=== PATIENT | female | born 1995 | race Caucasian/White ===

== ENCOUNTER 2019-03-31 11:42 | Emergency (ER) | payer BC ==
--- NOTE | 2019-03-31 12:02 | UC ---
Throat Pain/Nasal Hever HPI - HPI Summary HPI Summary: 23 yo female presents with sore tongue. She tells me that she has a history of bad asthma and uses a steroid inhaler and albuterol inhaler for this. Recently her asthma has been "Acting up" due to the weather change and she has been using these more frequently. Asthma is improving, but over the last 3 days has noticed a sore tongue and foods taste different. She has also been using her new roommates e-cig at school and found out that said roommate has oral sores that pt is concerned she contracted - has one small blister on her tongue that is tender. Denies fever, chills, sore throat, sinus symptoms, sob, rash. - History of Current Complaint Stated Complaint: ST, SPOTS Time Seen by Provider: 03/31/19 12:02 Hx Obtained From: Patient Onset/Duration: Sudden Onset Severity: Moderate Pain Intensity: 5 Pain Scale Used: 0-10 Numeric - Allergies/Home Medications Allergies/Adverse Reactions: Allergies Allergy/AdvReac Type Severity Reaction Status Date / Time Sulfa (Sulfonamide Allergy Swelling Verified 03/31/19 12:02 Antibiotics) Of Face,Lips,& Throat Home Medications: Home Medications Dextroamphetamine/Amphetamine [Adderall 20 mg Tablet] 1 tab QAM 03/31/19 [ History Confirmed 03/31/19] Fluticasone/Vilanterol MDI(NF) [Breo Ellipta MDI 200/25(NF)] 1 puff DAILY PRN [History Confirmed 03/31/19] Montelukast Sodium TAB* [Singulair 10 MG TAB*] 1 tab DAILY 03/31/19 [History Confirmed 03/31/19] PMH/Surg Hx/FS Hx/Imm Hx - Additional Past Medical History Additional PMH: ADHD Asthma - Surgical History Surgical History: None - Family History Known Family History: Positive: Respiratory Disease - Social History Occupation: Student Lives: Dormitory/Roommates Alcohol Use: Occasionally Substance Use Type: None Smoking Status (MU): Never Smoked Tobacco Review of Systems All Other Systems Reviewed And Are Negative: No Constitutional: Positive: Negative Skin: Positive: Negative Eyes: Positive: Negative ENT: Positive: Other - tongue lesion and sore tongue Respiratory: Positive: Negative Cardiovascular: Positive: Negative Gastrointestinal: Positive: Negative Neurological: Positive: Negative Psychological: Positive: Negative Physical Exam - Summary Physical Exam Summary: GENERAL: NAD. WDWN. No pain distress. SKIN: No rashes, sores, lesions, or open wounds. HEENT: Head: AT/NC Eyes: EOM intact. Conjunctiva clear without inflammation or discharge. Ears: Hearing grossly normal. TMs intact, no bulging, erythema, or edema. Nose: Nasal mucosa pink and moist. NTTP maxillary and frontal sinus. Throat: Posterior oropharynx without exudates, erythema, or tonsillar enlargement. Uvula midline. Tongue with mild white coating worse at the posterior aspect. Right side of tongue with 1mm diameter farmer/white appearing blister that is slightly TTP. No ulcer or erythematous base. No drainage or bleeding. NECK: Supple. Nontender. No lymphadenopathy. CHEST: CTAB. No accessory muscle use. Breathing comfortably and in no distress. CV: RRR. Pulses intact. Cap refill <2seconds NEURO: Alert. PSYCH: Age appropriate behavior. Triage Information Reviewed: Yes Vital Signs: Vital Signs: Temp Pulse Resp BP Pulse Ox 97.9 F 80 16 136/75 100 03/31/19 12:04 03/31/19 12:04 03/31/19 12:04 03/31/19 12:04 03/31/19 12:04 Vital Signs Reviewed: Yes Throat Pain/Nasal Course/Dx - Course Course Of Treatment: Suspect thrush. A culture was obtained of the lesion on her tongue, but this does not appear consistent with herpes. - Differential Dx/Diagnosis Provider Diagnosis: Thrush Discharge ED - Sign-Out/Discharge Documenting (check all that apply): Patient Departure All imaging exams completed and their final reports reviewed: No Studies - Discharge Plan Condition: Stable Disposition: HOME Prescriptions: Nystatin SUSPENSION ORAL SYR* 500,000 units PO QID 7 Days #140 ml Patient Education Materials: Oral Candidiasis (ED) Forms: *School Release Referrals: No Primary Care Phys,NOPCP [Primary Care Provider] - Additional Instructions: If you develop a fever, shortness of breath, chest pain, new or worsening symptoms - please call your PCP or go to the ED immediately. The spots on your tongue do not seem consistent with herpes, but we have sent a sample of the area to the lab for herpes testing - Billing Disposition and Condition Condition: STABLE Disposition: Home
[2019-03-31 12:10] VITALS: BP 136/75
[2019-04-02 18:03] LABS: Herpes Source TONGUE
== END 2019-03-31 12:29 | disposition home or self-care (01) ==
LOC: UCCORT 11:42
DX: B37.0 Candidal stomatitis (principal); J45.909 Unspecified asthma, uncomplicated; F90.9 Attention-deficit hyperactivity disorder, unspecified type; Z88.2 Allergy status to sulfonamides
CPT/HCPCS: 87529; 87651; 99202; G0463

== ENCOUNTER 2019-06-02 13:03 | Emergency (ER) | payer BC ==
[2019-06-02 13:29] VITALS: BP 121/84
--- NOTE | 2019-06-02 13:42 | UC ---
Skin Complaint HPI - HPI Summary HPI Summary: Pt presents c/o "crusted sore" X 3 weeks. Pt is concerned that she may have been exposed to oral herpes by roommate - History of Current Complaint Chief Complaint: UCSkin Time Seen by Provider: 06/02/19 13:21 Stated Complaint: SKIN CONCERN Hx Obtained From: Patient Hx Last Menstrual Period: 05/12/19 ?: No Onset/Duration: Gradual Onset, Lasting Weeks, Still Present Skin Exposure Onset/Duration: Days Ago Timing: Constant Onset Severity: Mild Current Severity: Mild Pain Intensity: 0 Location: Discrete - left corner of mouth Character: Raised Aggravating Factor(s): Nothing Alleviating Factor(s): Nothing Associated Signs & Symptoms: Positive: Rash - Allergy/Home Medications Allergies/Adverse Reactions: Allergies Allergy/AdvReac Type Severity Reaction Status Date / Time Penicillins Allergy Hives Verified 06/02/19 13:30 Sulfa (Sulfonamide Allergy Swelling Verified 06/02/19 13:29 Antibiotics) Of Face,Lips,& Throat PMH/Surg Hx/FS Hx/Imm Hx Previously Healthy: Yes - Surgical History Surgical History: None Surgery Procedure, Year, and Place: Tonsils - Family History Known Family History: Positive: Respiratory Disease - Social History Occupation: Student - [employer] Lives: Dormitory/Roommates Alcohol Use: Occasionally Substance Use Type: None Smoking Status (MU): Current Some Day Smoker Type: eCigarettes - Immunization History Vaccination Up to Date: Yes Review of Systems All Other Systems Reviewed And Are Negative: Yes Constitutional: Positive: Negative Skin: Positive: Rash - left corner of mouth Eyes: Positive: Negative ENT: Positive: Negative Respiratory: Positive: Negative Cardiovascular: Positive: Negative Gastrointestinal: Positive: Negative Genitourinary: Positive: Negative Motor: Positive: Negative Neurovascular: Positive: Negative Musculoskeletal: Positive: Negative Neurological: Positive: Negative Psychological: Positive: Negative Is Patient Immunocompromised?: No Physical Exam Triage Information Reviewed: Yes Appearance: Well-Appearing Vital Signs: Initial Vital Signs Temp 97.9 F 06/02/19 13:23 Pulse 81 06/02/19 13:23 Resp 16 06/02/19 13:23 BP 121/84 06/02/19 13:23 Pulse Ox 100 06/02/19 13:23 Vital Signs Reviewed: Yes Eye Exam: Normal ENT Exam: Normal Dental Exam: Normal Neck exam: Normal Respiratory Exam: Normal Respiratory: Positive: No respiratory distress Musculoskeletal Exam: Normal Neurological Exam: Normal Psychological Exam: Normal Skin Exam: Other - yellow crusted skin left corner of mouth that is yellow/ barboza, and skin between upper and lower lip in corner of mouth appears" split" . Course/Dx - Course Course Of Treatment: Pt denies pain. - Differential Diagnoses - Skin Complaint Differential Diagnoses: Tinea - Diagnoses Provider Diagnosis: Angular cheilitis Discharge ED - Sign-Out/Discharge Documenting (check all that apply): Patient Departure All imaging exams completed and their final reports reviewed: No Studies - Discharge Plan Condition: Stable Disposition: HOME Prescriptions: Fluconazole 100 MG TAB* [Diflucan 100 MG TAB*] 100 mg PO DAILY #2 tab Mupirocin 2% OINT* [Bactroban 2 % Oint*] 1 applic TOPICAL Q12H 7 Days #1 tube Patient Education Materials: Impetigo (ED), Skin Yeast Infection (ED) Referrals: No Primary Care Phys,NOPCP [Primary Care Provider] - If Needed - Billing Disposition and Condition Condition: STABLE Disposition: Home
== END 2019-06-02 13:52 | disposition home or self-care (01) ==
LOC: UCCORT 13:03
DX: K13.0 Diseases of lips (principal); F17.290 Nicotine dependence, other tobacco product, uncomplicated; Z88.0 Allergy status to penicillin; Z88.2 Allergy status to sulfonamides
CPT/HCPCS: 99212; G0463

== ENCOUNTER 2019-06-25 15:02 | Emergency (ER) | payer BC ==
[2019-06-25 15:23] VITALS: BP 134/82
--- NOTE | 2019-06-25 15:49 | UC ---
Respiratory Complaint HPI - HPI Summary HPI Summary: Pt c/o cough, wheezing X 1 week, woke this morning with bloody sputum with cougha nd blood in mucus of nose seen after blowing nose. - History of Current Complaint Chief Complaint: UCGeneralIllness Stated Complaint: COUGH,BLOODY PHLEGM Time Seen by Provider: 06/25/19 15:18 Hx Obtained From: Patient Hx Last Menstrual Period: 06/16/19 ?: No Onset/Duration: Gradual Onset, Lasting Days, Still Present Timing: Intermittent Episodes Severity Initially: Mild Severity Currently: Mild Pain Intensity: 0 Character: Cough: Productive, Sputum Description: - bloody Aggravating Factors: Exertion, Deep Breaths Alleviating Factors: Nothing Associated Signs And Symptoms: Positive: Hemoptysis, URI, Nasal Congestion Related History: Seasonal Allergies - Risk Factors Pulmonary Embolism Risk Factors: Negative Cardiac Risk Factors: Negative Pseudomonas Risk Factors: Chronic Lung Disease - asthma Tuberculosis Risk Factors: Negative - Allergies/Home Medications Allergies/Adverse Reactions: Allergies Allergy/AdvReac Type Severity Reaction Status Date / Time Penicillins Allergy Hives Verified 06/25/19 15:14 Sulfa (Sulfonamide Allergy Swelling Verified 06/25/19 15:14 Antibiotics) Of Face,Lips,& Throat Home Medications: Home Medications Cefdinir [Cefdinir 300 MG CAP] 300 mg PO BID 06/25/19 [History Confirmed ] PMH/Surg Hx/FS Hx/Imm Hx Previously Healthy: Yes Respiratory History: Asthma - Surgical History Surgical History: Yes Surgery Procedure, Year, and Place: Tonsils - Family History Known Family History: Positive: Respiratory Disease - Social History Occupation: Student Lives: Dormitory/Roommates Alcohol Use: Occasionally Substance Use Type: None Smoking Status (MU): Current Some Day Smoker Type: eCigarettes Have You Smoked in the Last Year: Yes - occasinal juul usage - Immunization History Vaccination Up to Date: Yes Review of Systems All Other Systems Reviewed And Are Negative: Yes Constitutional: Positive: Fatigue Skin: Positive: Negative Eyes: Positive: Negative Respiratory: Positive: Cough, Other - wheezing, bloody sputum Cardiovascular: Positive: Negative Gastrointestinal: Positive: Negative Genitourinary: Positive: Negative Motor: Positive: Negative Neurovascular: Positive: Negative Musculoskeletal: Positive: Negative Neurological: Positive: Negative Psychological: Positive: Negative Is Patient Immunocompromised?: No Physical Exam Triage Information Reviewed: Yes Appearance: Well-Appearing Vital Signs: Initial Vital Signs Temp 98.4 F 06/25/19 15:18 Pulse 62 06/25/19 15:18 Resp 16 06/25/19 15:18 BP 134/82 06/25/19 15:18 Pulse Ox 100 06/25/19 15:18 Vital Signs Reviewed: Yes Eye Exam: Normal ENT Exam: Normal Dental Exam: Normal Neck exam: Normal Respiratory: Positive: Wheezing Cardiovascular Exam: Normal Musculoskeletal Exam: Normal Neurological Exam: Normal Psychological Exam: Normal Skin Exam: Normal Diagnostics - Radiology No standard instances Radiology Interpretation Completed By: Radiologist - negative Respiratory Course/Dx - Differential Dx/Diagnosis Differential Diagnosis/HQI/PQRI: Exacerbation Of COPD, Lower Resp Infection Provider Diagnosis: Bronchitis, Blood-streaked sputum Discharge ED - Sign-Out/Discharge Documenting (check all that apply): Patient Departure All imaging exams completed and their final reports reviewed: Yes - Discharge Plan Condition: Stable Disposition: HOME Prescriptions: predniSONE 10 mg TAB [Deltasone 10 MG TAB*] 30 mg PO DAILY #12 tab Patient Education Materials: Hemoptysis (ED), Wheezing (ED) Referrals: [facility] [place] [facility] [Outside] - If Needed No Primary Care Phys,NOPCP [Primary Care Provider] - Additional Instructions: Please use a humidifier in your house/apartment to moisturize the air where you live. The symptoms you are experiencing are related to very dry air. - Billing Disposition and Condition Condition: STABLE Disposition: Home
== END 2019-06-25 16:09 | disposition home or self-care (01) ==
LOC: UCCORT 15:02
DX: J45.909 Unspecified asthma, uncomplicated (principal); R04.2 Hemoptysis; F17.290 Nicotine dependence, other tobacco product, uncomplicated; Z88.0 Allergy status to penicillin; Z88.2 Allergy status to sulfonamides
CPT/HCPCS: 71046; 99212; G0463

== ENCOUNTER 2019-07-31 13:33 | Emergency (ER) | payer BC ==
[2019-07-31 14:12] VITALS: BP 120/60
--- NOTE | 2019-07-31 15:12 | UC ---
Complaint Female HPI - HPI Summary HPI Summary: 24-year-old female presents with 2 day history of dysuria, frequency, and mild suprapubic discomfort. Her period started today. Denies fever, chills, back or flank pain, nausea, vomiting, vaginal discharge or itching. - History Of Current Complaint Chief Complaint: UCGU Stated Complaint: URINARY COMPLAINT Time Seen by Provider: 07/31/19 14:58 Hx Obtained From: Patient Hx Last Menstrual Period: 07/31/19 Pain Intensity: 7 - Allergies/Home Medications Allergies/Adverse Reactions: Allergies Allergy/AdvReac Type Severity Reaction Status Date / Time Penicillins Allergy Hives Verified 07/31/19 14:13 Sulfa (Sulfonamide Allergy Swelling Verified 07/31/19 14:13 Antibiotics) Of Face,Lips,& Throat PMH/Surg Hx/FS Hx/Imm Hx Previously Healthy: Yes Psychological History: Other - ADHD - Surgical History Surgical History: Yes Surgery Procedure, Year, and Place: Tonsils - Family History Known Family History: Positive: Respiratory Disease - Social History Occupation: Student Lives: Dormitory/Roommates Alcohol Use: Occasionally Substance Use Type: None Smoking Status (MU): Current Some Day Smoker Type: eCigarettes Have You Smoked in the Last Year: Yes - occasinal juul usage - Immunization History Vaccination Up to Date: Yes Review of Systems All Other Systems Reviewed And Are Negative: Yes Constitutional: Negative: Fever, Chills ENT: Positive: Negative Respiratory: Positive: Negative Cardiovascular: Positive: Negative Gastrointestinal: Positive: Abdominal Pain. Negative: Vomiting, Diarrhea, Nausea Genitourinary: Positive: Dysuria, Frequency, Urgency. Negative: Vaginal/Penile Itching, Vaginal/Penile Discharge Musculoskeletal: Positive: Negative Neurological/Mental Status: Positive: Negative Is Patient Immunocompromised?: No Physical Exam - Summary Physical Exam Summary: GENERAL APPEARANCE: Well developed, well nourished, alert and cooperative, and appears to be in no acute distress. CARDIAC: Normal S1 and S2. No S3, S4 or murmurs. Rhythm is regular. There is no peripheral edema, cyanosis or pallor. Extremities are warm and well perfused. Capillary refill is less than 2 seconds. Peripheral pulses intact. LUNGS: Clear to auscultation without rales, rhonchi, wheezing or diminished breath sounds. ABDOMEN: Positive bowel sounds. Soft, nondistended, nontender. No guarding or rebound. No masses or hepatosplenomegally. No CVA tenderness. MUSKULOSKELETAL: ROM intact to all extremities. No joint erythema or tenderness. Normal muscular development. Normal gait. SKIN: Skin normal color, texture and turgor with no lesions or eruptions. Triage Information Reviewed: Yes Vital Signs: Initial Vital Signs Temp 98.3 F 07/31/19 14:09 Pulse 85 07/31/19 14:09 Resp 14 07/31/19 14:09 BP 120/60 07/31/19 14:09 Pulse Ox 99 07/31/19 14:09 Vital Signs Reviewed: Yes Complaint Female Dx - Course Course Of Treatment: 24-year-old female presents with 2 day history of dysuria, frequency, and mild suprapubic discomfort. Her period started today. Denies fever, chills, back or flank pain, nausea, vomiting, vaginal discharge or itching. Afebrile. Vital signs stable. Patient's exam was overall unremarkable. [id number] urinalysis showed trace leukocytes, 3+ blood, and 2+ protein. Urine culture is pending. Reviewed results with the patient was discussed with her having her menses it is difficult to tell from the urinalysis if her symptoms are from a UTI however based on her symptoms we will go ahead and treat her empirically with Macrobid 100 mg twice a day 5 days pending the culture results. I will also provide her with a prescription for Pyridium 100 mg 3 times a day 2 days to help with the discomfort. She is to return or follow up with the [facility] in 3-5 days if symptoms do not improve. Anticipatory evidence of warning symptoms were reviewed with the patient. Verbalizes understanding and agrees with plan of care. - Differential Dx/Diagnosis Differential Diagnosis/HQI/PQRI: Pelvic Inflammatory Disease, , Sexually Transmitted Disease, Urinary Tract Infection, Other - Vulvovaginitis Provider Diagnosis: UTI (urinary tract infection) Discharge ED - Sign-Out/Discharge Documenting (check all that apply): Patient Departure All imaging exams completed and their final reports reviewed: No Studies - Discharge Plan Condition: Stable Disposition: HOME Prescriptions: Nitrofurantoin Monohyd/M-Cryst [Macrobid 100 mg Capsule] 100 mg PO BID #10 cap Phenazopyridine TAB* [Pyridium 100 mg TAB*] 100 mg PO TID #6 tab Patient Education Materials: Urinary Tract Infection in Women (ED) Forms: *School Release Referrals: No Primary Care Phys,NOPCP [Primary Care Provider] - Additional Instructions: Your urine test in the clinic today is suggestive of a possible urinary tract infection. We will start you on an antibiotic to treat for the infection. We will also send a urine culture today to see what bacteria grow out and make sure the antibiotic you were prescribed is appropriate to treat the infection. It will take 48-72 hours to get these results. We will contact you if there is any change in your treatment plan. Start Macrobid 1 tab twice a day for 5 days. Take Pyridium 1 tablet every 8 hours for next 2 days to help with the discomfort. This medication will turn your urine an orange color. Drink plenty of fluids. To help prevent urinary tract infections: 1) Be sure to wipe from front to back. 2) Urinate immediately after any sexual intercourse. 3) Avoid taking bubble baths. Return here or follow up with the [facility] in 3-5 days if symptoms persist. Seek immediate medical attention in the emergency room if you develop fever greater than 100.5 F, have severe abdominal pain, persistent vomiting, or any worsening of symptoms. - Billing Disposition and Condition Condition: STABLE Disposition: Home - Attestation Statements Provider Attestation: This patient was not seen by me. I was available for consult. Chart reviewed. [email or web address]
--- NOTE | 2019-08-02 07:26 | UC ---
- Progress Note Progress Note: Urine culture negative for bacterial infection. She can stop use of macrobid and should follow up with her PMD if she is having persistent symptoms. Course/Dx - Diagnoses Provider Diagnoses: UTI (urinary tract infection) Discharge ED - Sign-Out/Discharge Documenting (check all that apply): Post-Discharge Follow Up All imaging exams completed and their final reports reviewed: No Studies - Discharge Plan Condition: Stable Disposition: HOME Prescriptions: Nitrofurantoin Monohyd/M-Cryst [Macrobid 100 mg Capsule] 100 mg PO BID #10 cap Phenazopyridine TAB* [Pyridium 100 mg TAB*] 100 mg PO TID #6 tab Patient Education Materials: Urinary Tract Infection in Women (ED) Forms: *School Release Referrals: No Primary Care Phys,NOPCP [Primary Care Provider] - Additional Instructions: Your urine test in the clinic today is suggestive of a possible urinary tract infection. We will start you on an antibiotic to treat for the infection. We will also send a urine culture today to see what bacteria grow out and make sure the antibiotic you were prescribed is appropriate to treat the infection. It will take 48-72 hours to get these results. We will contact you if there is any change in your treatment plan. Start Macrobid 1 tab twice a day for 5 days. Take Pyridium 1 tablet every 8 hours for next 2 days to help with the discomfort. This medication will turn your urine an orange color. Drink plenty of fluids. To help prevent urinary tract infections: 1) Be sure to wipe from front to back. 2) Urinate immediately after any sexual intercourse. 3) Avoid taking bubble baths. Return here [facility] days if symptoms persist. Seek immediate medical attention in the emergency room if you develop fever greater than 100.5 F, have severe abdominal pain, persistent vomiting, or any worsening of symptoms. - Billing Disposition and Condition Condition: STABLE Disposition: Home
== END 2019-07-31 15:28 | disposition home or self-care (01) ==
LOC: UCCORT 13:33
DX: N39.0 Urinary tract infection, site not specified (principal); Z88.0 Allergy status to penicillin; Z88.2 Allergy status to sulfonamides; F17.290 Nicotine dependence, other tobacco product, uncomplicated
CPT/HCPCS: 81003; 87086; 99212; G0463